=== PATIENT | male | born 1980 | race African-American/Black ===

== ENCOUNTER 2017-12-23 10:22 | Emergency (ER) | payer OTHER ==
[~2017-12-23] VITALS: Ht 167.6 cm; Wt 92.5 kg
[2017-12-23 10:25] VITALS: TEMP 37.7; Ht 167.6 cm; Wt 92.5 kg
--- NOTE | 2017-12-23 11:01 | DIAGNOSTIC IMAGING REPORT ---
CHEST 2 VIEWS ROUTINE HISTORY: cough x 3 wks COMPARISON: Chest 05/06/2014. FINDINGS: The lungs are clear. Cardiac silhouette is normal in size. No pleural effusions. No pneumothorax. IMPRESSION: No acute process. Electronically signed by: Alex Orantes M.D. 12/23/2017 11:00 AM Dictated Date/Time: 12/23/2017 10:59 AM
[2017-12-23] MEDS ORDERED: AZITTAB PO (12:08)
[2017-12-23 12:20] VITALS: BP 148/85; PULSE 93; O2SAT 96
--- NOTE | 2017-12-23 16:20 | EMERGENCY ROOM VISIT NOTE ---
History First contact with patient: 10:36 Chief Complaint: FACIAL PAIN/INJURY Stated Complaint: "WILL DISCUSS" History of Present Illness The patient is a 37 year old male who presents to the Emergency Room with complaints of right facial swelling and cough for the past 3 weeks. The patient reports that the swelling came on rather quickly over the past few days. He reports that the cough has been persistent and is productive. The patient has not had any headaches, sore throat, back pain or recent fevers. Immunization status is up-to-date. The patient rates his overall discomfort a 4 out of 10. Review of Systems 10 system review was performed and was negative except for pertinent positives and negatives as indicated in history of present illness Past Medical/Surgical History Medical Problems: (1) History of femur fracture (2) Hx-Venous Thrombosis&Embolism (3) Rhabdomyolysis (4) Unspecified asthma Family History No significant family history Social History Smoking Status: Never Smoker Alcohol Use: none Marital Status: single Housing Status: lives with family, lives with significant other Occupation Status: employed Current/Historical Medications Scheduled Azithromycin (Zithromax Z-Neel), 0 PO UD Physical Exam Vital Signs Date Time Temp Pulse Resp B/P (MAP) Pulse Ox O2 Delivery O2 Flow Rate FiO2 12/23/17 12:20 93 16 148/85 96 Room Air 12/23/17 10:25 37.7 87 18 135/84 99 Room Air Physical Exam CONSTITUTIONAL: Healthy and well nourished. Alert and oriented X 3 with flat affect. HEENT: Normocephalic, atraumatic. Pupils equal, round and reactive. Ears and nares are clear. No tenderness to palpation of the right TMJ. There is no edema or tenderness to palpation over the parotid gland. OROPHARYNX: Patient is able to open and close the mouth with negative trismus. No obvious dental issues, tonsillar hypertrophy or exudates. No evidence for Germán's angina or retropharyngeal abscess. LYMPHATICS: The patient has a large superior and upper anterior cervical chain lymph node. There is no overriding erythema. The lymph node is tender to palpation. No posterior adenopathy noted. NECK: Full active range of motion without discomfort. No nuchal rigidity. RESPIRATORY: Clear to auscultation bilaterally with no wheezing, crackles, rhonchi or stridor. CARDIOVASCULAR: Regular rate and rhythm with no murmurs, rubs or gallops. MUSCULOSKELETAL: Full range of motion of all joints without discomfort. INTEGUMENTARY: No rash or other significant dermatologic conditions noted. NEUROLOGIC: No focal neurologic deficits noted. Medical Decision & Procedures ER Provider Diagnostic Interpretation: My interpretation of a two-view chest x-ray does not show any consolidations or pneumothorax. Radiologist report is as follows: CHEST 2 VIEWS ROUTINE HISTORY: cough x 3 wks COMPARISON: Chest 05/06/2014. FINDINGS: The lungs are clear. Cardiac silhouette is normal in size. No pleural effusions. No pneumothorax. IMPRESSION: No acute process. ED Course Patient history and physical exam were performed. Nurse's notes were reviewed. Vital signs were reviewed, showing a temperature of 37.7C. The patient is not tachycardic, and O2 saturation is 99% on room air. A two-view chest x-ray was performed and did not show any acute consolidations. I did review allergies with the patient, he reports that he has facial swelling with use of penicillin. The patient will then be provided a prescription for a Z-Neel. He was encouraged to alternate ibuprofen and Tylenol as needed for pain. He was encouraged to apply warm moist compress to the lymph node. The patient reports that his insurance recently changed, however has not had a chance to find a new family doctor. The patient does have [employer]. He was provided contact information for the [facility] clinic in [place] near where he lives. He was encouraged to follow-up within for recheck in one week, sooner with any worsening symptoms. He is welcome to return to the emergency department for any significantly worsening lymph node swelling, difficulty swallowing, increasing fever or other concerning symptoms. The patient was happy with plan of care, voice understanding of all discharge instructions, and rated his overall discomfort a 3 out of 10 at the conclusion of my exam. It is noted that the patient was told by his former PCP to come to the emergency department for lab work. The patient was advised that no lab work today would alter his plan of care, and that further necessary lab work can be ordered by his PCP as warranted. Medical Decision Medication Reconcilliation Current Medication List: was personally reviewed by me Blood Pressure Screening Patient's blood pressure: Normal blood pressure Impression Primary Impression: Acute bronchitis Additional Impression: Cervical lymphadenitis Departure Information Dispostion Home / Self-Care Prescriptions Azithromycin (ZITHROMAX Z-NEEL) 250 Mg Tab 0 PO UD, #1 PKT 2 TABS DAY 1, THEN 1 TAB DAILY FOR 4 DAYS Prov: Ronal Frank PA 12/23/17 Referrals Shanna Betts M.D. (MEDICAL) Yosef Rosa M.D. (PCP) Forms HOME CARE DOCUMENTATION FORM, IMPORTANT VISIT INFORMATION Patient Instructions My [facility], ED Upper Resp Infec Abx Tx Additional Instructions Complete all azithromycin antibiotics as prescribed. Intermittently apply a warm compress to the neck for swelling. Ibuprofen 800 mg and/or Tylenol 1000 mg every 8 hours. You may also alternate these medications for more effective pain relief: Ibuprofen --4 HRS--> Tylenol --4 HRS--> ibuprofen --4 HRS--> Tylenol .... Follow-up with the [facility] clinic in [place] (Dr. Betts) in one week for reevaluation. Call today for an appointment. Problem Qualifiers Primary Impression: Acute bronchitis Bronchitis organism: unspecified organism Qualified Codes: J20.9 - Acute bronchitis, unspecified
== END 2017-12-23 12:21 | disposition home or self-care (01) ==
LOC: C.EDB 10:23 → C.EDC 12:21
DX: J20.9 Acute bronchitis, unspecified (principal); I88.9 Nonspecific lymphadenitis, unspecified; J45.909 Unspecified asthma, uncomplicated; Z86.718 Personal history of other venous thrombosis and embolism